=== PATIENT | male | born 1995 | race Caucasian/White ===

== ENCOUNTER 2023-06-06 11:39 | Emergency (ER) | payer OTHER ==
[~2023-06-06] VITALS: Ht 193 cm; Wt 135.0 kg
[2023-06-06 14:41] LABS: BASO % 0.5 % (0.0-1.0); EOS % 0.1 % (0.0-3.0); HEMATOCRIT 44.6 % (42.0-52.0); LYMPH # 0.7 10^3/uL (1.5-5.0); MEAN CORPUSCULAR HEMOGLOBIN 29.4 pg (27.0-33.0); MEAN CORPUSCULAR HGB CONC 33.6 g/dl (32.0-36.5); MEAN CORPUSCULAR VOLUME 87.5 fl (80.0-96.0); MONO # 0.7 10^3/uL (0.0-0.8); NEUTROPHILS # 5.9 10^3/uL (1.5-8.5); NEUTROPHILS % 80.9 % (36.0-66.0); PLATELET COUNT, AUTOMATED 192 10^3/uL (150-450); WHITE BLOOD COUNT 7.3 10^3/uL (4.0-10.0)
[2023-06-06] MEDS ORDERED: AUGMENTIN 875 MG TAB PO ONE (15:00)
[2023-06-06] MEDS ORDERED: KETOROLAC 30 MG/ML 1ML VIAL IV ONE (15:00)
[2023-06-06] MEDS ORDERED: ONDANSETRON 4MG 2ML VIAL IV ONE (15:00)
[2023-06-06] MEDS ORDERED: NS 1,000 ML IV ONE (15:00)
[2023-06-06 15:05] LABS: ALBUMIN 3.9 G/DL (3.2-5.2); BILIRUBIN,DIRECT 0.2 MG/DL (<0.4); BILIRUBIN,TOTAL 0.5 MG/DL (0.3-1.2); TOTAL PROTEIN 7.1 G/DL (5.7-8.2)
[2023-06-06 15:25] LABS: RSV AMPLIFICATION NEGATIVE (NEGATIVE)
[2023-06-06] MEDS ORDERED: FLON1SPR NARES (15:46)
[2023-06-06] MEDS ORDERED: AMOX875T2 PO (15:46)
[2023-06-06 15:54] VITALS: BP 129/69; TEMP 98; O2SAT 99
== END 2023-06-06 16:08 | disposition home or self-care (01) ==
LOC: M ED 11:39
DX: J02.0 Streptococcal pharyngitis (principal); H66.93 Otitis media, unspecified, bilateral; E78.5 Hyperlipidemia, unspecified; K74.60 Unspecified cirrhosis of liver; K76.0 Fatty (change of) liver, not elsewhere classified
CPT/HCPCS: 80047; 80076; 83690; 85025; 87631; 87880; 96374; 96375; 99284; J1885; J2405

== ENCOUNTER 2023-10-05 16:15 | Emergency (ER) | payer OTHER ==
[~2023-10-05] VITALS: Ht 193 cm; Wt 141.3 kg
[~2023-10-05 16:15] MED LIST: AMOX875T2 PO; FLON1SPR NARES; FLUO20CA22; METF10004
[2023-10-05 16:53] LABS: BASO % 0.3 % (0.0-1.0); EOS % 0.6 % (0.0-3.0); HEMATOCRIT 46.2 % (42.0-52.0); HEMOGLOBIN 15.8 g/dl (13.5-17.5); LYMPH # 0.2 10^3/uL (1.5-5.0); LYMPH % 3.3 % (24.0-44.0); MEAN CORPUSCULAR HEMOGLOBIN 29.4 pg (27.0-33.0); MEAN CORPUSCULAR HGB CONC 34.2 g/dl (32.0-36.5); MONO # 0.5 10^3/uL (0.0-0.8); MONO % 7.1 % (2.0-8.0); NEUTROPHILS # 5.8 10^3/uL (1.5-8.5); NEUTROPHILS % 88.4 % (36.0-66.0); PLATELET COUNT, AUTOMATED 174 10^3/uL (150-450); RED BLOOD COUNT 5.37 10^6/uL (4.30-6.10); WHITE BLOOD COUNT 6.6 10^3/uL (4.0-10.0)
[2023-10-05 17:26] LABS: ALBUMIN 4.4 G/DL (3.2-5.2); BILIRUBIN,DIRECT 0.2 MG/DL (<0.4); BILIRUBIN,TOTAL 0.5 MG/DL (0.3-1.2); TOTAL PROTEIN 7.2 G/DL (5.7-8.2)
[2023-10-05] MEDS ORDERED: ONDANSETRON 4MG 2ML VIAL IV ONE (17:45)
[2023-10-05] MEDS ORDERED: ACETAMINOPHEN TAB 650MG DOSE (2X325MG) PO ONE (17:45)
[2023-10-05] MEDS ORDERED: NS 1,000 ML IV ONE (17:45)
[2023-10-05] MEDS ORDERED: ISOVUE-370 76% 100ML VIAL As Ordered ONE (17:49)
[2023-10-05] MEDS ORDERED: ONDA4TAB6 PO (21:21)
[2023-10-05 22:00] VITALS: BP 137/80; TEMP 98.4; O2SAT 99
== END 2023-10-05 22:00 | disposition home or self-care (01) ==
LOC: M ED 16:15
DX: R11.10 Vomiting, unspecified (principal); R10.9 Unspecified abdominal pain; B97.0 Adenovirus as the cause of diseases classified elsewhere; U07.1 COVID-19; K76.0 Fatty (change of) liver, not elsewhere classified; E11.9 Type 2 diabetes mellitus without complications; K85.90 Acute pancreatitis without necrosis or infection, unspecified; Z87.891 Personal history of nicotine dependence; Z79.899 Other long term (current) drug therapy; Z79.84 Long term (current) use of oral hypoglycemic drugs
CPT/HCPCS: 71046; 74177; 80047; 80076; 81001; 83690; 85025; 87086; 87486; 87581; 87633; 87798; 93041; 96361; 96374; 99284; J2405; Q9967